=== PATIENT | male | born 1955 | race Caucasian/White ===

== ENCOUNTER 2016-08-18 08:09 | Inpatient (IN) | payer BC, OTHER ==
[~2016-08-18] VITALS: Ht 170.2 cm; Wt 91.2 kg
[2016-08-18] VITALS (20 sets, daily range): BP systolic 109–155; BP diastolic 73–98; PULSE 62–74; RESP 10–26; Ht 170.2 cm; Wt 91.2 kg
[~2016-08-18 08:09] MED LIST: ACET1TAB40 PO; IBUP200C11 PO
[2016-08-18] MEDS ORDERED: GELATIN SIZE 100 SPONGE ONE (11:29)
[2016-08-18] MEDS ORDERED: BUPIVACAINE 0.25%/EPI (SDV) 30 ML INJ ONE (11:29)
[2016-08-18] MEDS ORDERED: SURGIFOAM POWDER 1 GM KIT ONE (11:29)
[2016-08-18] MEDS ORDERED: BUPIVACAINE 0.25% (MPF) 30 ML INJ ONE (11:29)
[2016-08-18] MEDS ORDERED: THROMBIN 5000 UNIT VIAL ONE (11:30)
[2016-08-18] MEDS ORDERED: CA CHLORIDE 10% 10 ML SYRINGE ONE (11:30)
[2016-08-18] MEDS ORDERED: POLYMYXIN/BACITRACIN 1L IRRIG ONE (11:43)
[2016-08-18] MEDS ORDERED: ROCURONIUM 50 MG INJ ONE (12:11)
[2016-08-18] MEDS ORDERED: MEPERIDINE 100 MG INJ ONE (12:11)
[2016-08-18] MEDS ORDERED: SUCCINYLCHOLINE CHLORIDE 100 MG/5 ML SYG IV ONE (12:11)
[2016-08-18] MEDS ORDERED: GLYCOPYRROLATE 0.4 MG INJ ONE ×3 (12:11→13:24)
[2016-08-18] MEDS ORDERED: PROPOFOL 20 ML ONE (12:11)
[2016-08-18] MEDS ORDERED: LIDOCAINE 2% (SDV) 5 ML INJ ONE (12:11)
[2016-08-18] MEDS ORDERED: NEOSTIGMINE 3 MG/3 ML SYRINGE ONE ×2 (12:11→13:24)
[2016-08-18] MEDS ORDERED: FENTAnyl 50 MCG/ML VIAL IV PRN ×2 (12:30)
[2016-08-18] MEDS ORDERED: LABETALOL HCL 20MG INJ IV PRN (12:30)
[2016-08-18] MEDS ORDERED: morphine (1 MG/ML) 10ML SYRINGE IV PRN ×2 (12:30)
[2016-08-18] MEDS ORDERED: MEPERIDINE 25 MG INJ IV PRN (12:30)
[2016-08-18] MEDS ORDERED: ONDANSETRON 4 MG INJ IV PRN (12:30)
[2016-08-18] MEDS ORDERED: HYDROmorphONE (0.2 MG/ML) 10ML SYG IV PRN ×2 (12:30)
[2016-08-18] MEDS ORDERED: hydrALAzine 20 MG INJ IV PRN (12:30)
[2016-08-18] MEDS ORDERED: METOCLOPRAMIDE 10 MG INJ IV PRN (12:30)
[2016-08-18] MEDS ORDERED: DIPHENHYDRAMINE 50 MG INJ IV PRN (12:30)
[2016-08-18] MEDS ORDERED: MIDAZOLAM 1 MG/ML 2 ML INJ IV PRN (12:30)
[2016-08-18] MEDS ORDERED: EPHEDrine SULFATE 50 MG/5 ML SYG IV PRN (12:30)
[2016-08-18] MEDS ORDERED: BUPIVACAINE 0.25%/EPI (SDV) 30 ML INJ INJ ONE (12:48)
[2016-08-18] MEDS ORDERED: THROMBIN 5000 UNIT VIAL TOP ONE (12:48)
[2016-08-18] MEDS ORDERED: POLYMYXIN/BACITRACIN 1L IRRIG IRR ONE (12:48)
[2016-08-18] MEDS ORDERED: ONDANSETRON 4 MG INJ ONE (13:51)
--- NOTE | 2016-08-18 14:10 | HPN ---
Date/Time of Note Date/Time of Note DATE: 08/18/16 TIME: 14:09 Interval H&P Admission Note Pt. seen H&P reviewed: No system changes RAVINDER JUSTIN MD August 18, 2016 14:10
--- NOTE | 2016-08-18 14:11 | RADRPT ---
PROCEDURE: Intraoperative imaging of the lumbar spine with fluoroscopy. CLINICAL INDICATION: Back pain. Intraoperative. TECHNIQUE: 2 images of the lumbar spine were obtained in the operating room with an image intensif ier. No radiologist was in attendance. 7.2 seconds of fluoroscopy time was used. COMPARISON: Intraoperative imaging dated 03/20/2015. FINDINGS: For the purposes of this report, the last apparent true disc level is considered to be L5-S1. Based on this, initial frontal image demonstrates pedicle screws and connecting rods at L5 and S1. The s econd image as a frontal view demonstrating removal of the pedicle screws and connecting rods. IMPRESSION: 1. Intraoperative imaging of the lumbar spine. Removal of pedicle screws and connecting rods. RPTAT: QQ .Carlos Gonsalez MD, Date Time Electronically viewed and signed by .Carlos Gonsalez MD, on 08/18/2016 14:10 .R/
[2016-08-18] MEDS ORDERED: AL HYDROX/MG HYDROX/SIMETH 30 ML CUP PO PRN (14:30)
[2016-08-18] MEDS ORDERED: HYDROCODONE/APAP (10/325) TAB PO PRN ×2 (14:30)
[2016-08-18] MEDS ORDERED: NALOXONE (0.4 MG/ML) INJ IV PRN (14:30)
[2016-08-18] MEDS ORDERED: CYCLOBENZAPRINE 10 MG TAB PO PRN (14:30)
[2016-08-18] MEDS ORDERED: CEPASTAT LOZENGE MT PRN (14:30)
[2016-08-18] MEDS ORDERED: CEFAZOLIN 1 GM/50 ML (PMX) 50 ML IVPB SCH (14:30)
[2016-08-18] MEDS ORDERED: ACETAMINOPHEN 325 MG TAB PO PRN (14:30)
[2016-08-18] MEDS ORDERED: DIPHENHYDRAMINE 25 MG CAP PO PRN (14:30)
[2016-08-18] MEDS ORDERED: HYDROmorphONE 1 MG/ML SYG IV PRN (14:30)
[2016-08-18] MEDS ORDERED: BISACODYL 10 MG SUPP PR PRN (14:30)
[2016-08-18] MEDS: HYDROmorphONE 0.2 MG/ML PCA IV SCH ×2 (14:37→21:34)
[2016-08-18] MEDS: D5W-0.45 NACL + KCL 20 MEQ 1,000 ML IV SCH (16:16)
[2016-08-18] MEDS ORDERED: CARISOPRODOL 350 MG TAB PO PRN (16:30)
--- NOTE | 2016-08-18 17:25 | PN ---
Date/Time of Note Date/Time of Note DATE: 08/18/16 TIME: 17:23 Assessment/Plan VTE Prophylaxis VTE Prophylaxis Intervention: SCD's Lines/Catheters IV Catheter Type (from Nrsg): Saline Lock Subjective 24 Hr Interval Summary Free Text/Dictation post op removal of hardware from l spine awake, doing ok, still some pain, has bander hand vs ok alert, lungs clear, hr ok, abd sl distended post op moves legs well will prob be okj for dc tomorrow per dr pitt Exam/Review of Systems Vital Signs Vitals Vital Signs Date Time Temp Pulse Resp B/P Pulse Ox O2 Delivery O2 Flow Rate FiO2 08/18/16 14:53 70 14 115/76 95 08/18/16 14:43 Room Air 08/18/16 14:14 97.6 Medications Medications Current Medications Potassium Chloride/Dextrose/ Sod Cl (D5-1/2ns + KCl 20 Meq) 1,000 ml @ 100 mls/ hr Q10H IV Last administered on 08/18/16t 16:16; Admin Dose 100 MLS/HR; Start 08/18/16 at 14:11 Acetaminophen/ Hydrocodone Bitart ([place] (10/325)) 1 tab Q4H PRN PO PAIN LEVEL 1-5; Start 08/18/16 at 14:30; Status Future hold Acetaminophen/ Hydrocodone Bitart ([place] (10/325)) 2 tab Q4H PRN PO PAIN LEVEL 6-10; Start 08/18/16 at 14:30; Status Future hold Hydromorphone HCl (Dilaudid) 0.2 mg Q1H PRN IV BREAKTHROUGH PAIN; Start at 14:30 Ondansetron HCl (Zofran Inj) 4 mg Q6H PRN IV NAUSEA AND/OR VOMITING; Start at 14:30 Bisacodyl (Dulcolax Supp) 10 mg DAILY PRN [place] CONSTIPATION; Start 08/18/16 at 14 :30 Docusate Sodium (Colace) 100 mg BID PO ; Start 08/18/16 at 21:00 Pantoprazole (Protonix Iv) 40 mg DAILY@06 IV ; Start 08/19/16 at 06:00 Al Hydrox/Mg Hydrox/Simethicone (Mag-Al Plus) 15 ml Q6H PRN PO CONSTIPATION/ DYSPEPSIA; Start 08/18/16 at 14:30 Acetaminophen (Tylenol Tab) 650 mg Q4H PRN PO DONNELLY OR TEMP GREATER THAN 101.3F; Start 08/18/16 at 14:30 Phenol (Cepastat Lozenge) 1 lozenge PRN PRN [place] SORE THROAT; Start 08/18/16 at 14:30 Diphenhydramine HCl (Benadryl) 25 mg Q6H PRN PO ITCHING; Start 08/18/16 at 14: 30 Naloxone HCl (Narcan) 0.2 mg Q2M PRN IV RR 8 BREATHS/MIN OR LESS; Start at 14:30 Hydromorphone HCl (Dilaudid SECOND CHEF) SECOND CHEF to be started in PACU Q4PCA IV Last administered on 08/18/16t 14:37; Admin Dose 6 MG; Start 08/18/16 at 14:30; Stop 08/19/16 at 10:00 Miscellaneous Information 1. Hold SECOND CHEF at 1,000... SECOND CHEF IV ; Start 08/18/16 at 14: 30; Stop 08/19/16 at 10:00 Cefazolin Sodium (Ancef 1 Gm/50 ml (Pmx)) 50 ml @ 100 mls/hr Q8H IVPB ; Start 08/18/16 at 21:00; Stop 08/19/16 at 13:29 Carisoprodol (Soma) 350 mg TID PRN PO MUSCLE SPASMS; Start 08/18/16 at 16:30 CALLIE DE JESUS MD August 18, 2016 17:25
--- NOTE | 2016-08-18 18:27 | OPR ---
DATE OF OPERATION: 08/18/2016 PREOPERATIVE DIAGNOSES: Retained painful lumbar hardware status post lumbar fusion. POSTOPERATIVE DIAGNOSIS: Retained painful lumbar hardware status post lumbar fusion. PROCEDURE PERFORMED: 1. Removal of deep lumbar hardware. 2. Evaluation of lumbar fusion. 3. Use of C-arm fluoroscopy with interpretation without radiologist present. 4. Intraoperative neuromonitoring (1 hour). PRIMARY SURGEON: Lavelle Pulliam MD. TECHNICAL CONSULTANT: None. FINDINGS: Neuromonitoring at the start of the case revealed left L5 amplitude down 30%, left S1 evelio n 10%. At the end of the case, nerve signals returned to normal. The patient appeared to be fused. ESTIMATED BLOOD LOSS: Less than 30 mL. DRAINS: None. SPECIMENS: Hardware was sent to Pathology. COMPLICATIONS OF PROCEDURES: None. ANESTHESIOLOGIST: Dr. Jara. TYPE OF ANESTHESIA: General. INDICATIONS FOR PROCEDURE: This is a 61-year-old gentleman who had previously undergone a lumbosacr al fusion. The hardware appeared to be causing pain, therefore, I recommended removal of the hardwa re. DESCRIPTION OF PROCEDURE IN DETAIL: The patient was identified in the preoperative holding area, [facility], taken to the operating room, where he was successfully placed under general an esthesia by Dr. Jara. Neuromonitoring leads were placed, sequential compressive devices were applied . Neuromonitoring was utilized during the procedure for 1 hour to include SSEP, MEP and EMG. This was performed by [employer]. Start time was 12:45 p.m., closure time was 1:45 p.m. The patie nt was placed in the operating table in prone position over a Yariel frame. All bony prominences we re well padded. The back was prepped, draped in usual sterile fashion. Using the C-arm fluoroscope , I had localized the incision site. I anesthetized skin and deep muscle with Marcaine and epinephr ine. I then made parasagittal incisions directly over the hardware. One incision on the left, one incision on the right. Incision was taken down to dorsal fascia, which was incised with Bovie caute ry. I identified the hardware. I removed the facet screws bilaterally at L5 and S1. I then evalua adrienne the fusion and the patient appeared to be fused. I removed the rods and then removed the deep L 5 and S1 pedicle screws bilaterally. I then irrigated the wound. I back filled the screw holes wit h Fibergraft . I injected Surgifoam for hemostatic purposes. I irrigated the wound again. I close d the deep fascia with #1 Vicryl stitch. I then closed subcutaneous tissue with 2-0 Vicryl stitch. Dermabond was then placed. I took final x-rays to confirm all hardware had been removed. Nerve s ignals also improved. The patient was then awakened from anesthesia and taken to recovery room in s table condition. Lap, sponge counts were correct x2. There were no apparent complications during t he procedure. The patient will be admitted to the orthopedic stringer for routine postoperative care to include pain c ontrol, neurovascular checks, antibiotics and physical therapy. Dictated By: LAVELLE JOHNSON/PAOLA Conf#: [id number] DID#: [id number]
[2016-08-18] MEDS: CEFAZOLIN 1 GM/50 ML (PMX) 50 ML IVPB SCH (20:09)
[2016-08-18] MEDS: DOCUSATE SODIUM 100 MG CAP PO SCH (20:09)
[2016-08-18] MEDS: ONDANSETRON 4 MG INJ IV PRN (20:09)
[2016-08-19] MEDS: D5W-0.45 NACL + KCL 20 MEQ 1,000 ML IV SCH ×2 (00:11→00:32)
[2016-08-19 04:48] VITALS: BP 142/76; RESP 18
[2016-08-19] MEDS: CEFAZOLIN 1 GM/50 ML (PMX) 50 ML IVPB SCH ×2 (04:49→12:40)
[2016-08-19] MEDS: ONDANSETRON 4 MG INJ IV PRN (04:50)
[2016-08-19] MEDS ORDERED: PANTOPRAZOLE 40 MG INJ IV SCH (06:00)
[2016-08-19 06:01] LABS: CALCIUM 8.7 mg/dl (8.4-10.2); CREATININE 0.84 mg/dl (0.61-1.24); POTASSIUM 4.4 mmol/L (3.5-5.1)
[2016-08-19 06:01] LABS: ADD SCAN DIFF NO
[2016-08-19 06:07] LABS: BASOPHILS % 0.2 % (0.0-2.0); EOSINOPHILS % 0.1 % (0.0-7.0); HEMOGLOBIN 14.6 g/dl (14.0-18.0); MEAN CORPUSCULAR HEMOGLOBIN 28.7 pg (29.0-33.0); MEAN CORPUSCULAR HGB CONC 32.4 g/dl (32.0-37.0); MEAN CORPUSCULAR VOLUME 88.4 fl (82.0-101.0); MEAN PLATELET VOLUME 12.4 fl (7.4-10.4); MONOCYTE # 1.1 10^3/ul (0.3-0.9); MONOCYTES % 8.5 % (0.0-11.0); NEUTROPHIL # 10.8 10^3/ul (1.6-7.5); NEUTROPHILS % 82.9 % (39.0-77.0); PLATELET COUNT 163 10^3/UL (140-415); RED BLOOD COUNT 5.09 10^6/ul (4.70-6.10); RED CELL DISTRIBUTION WIDTH 13.8 % (11.5-14.5)
--- NOTE | 2016-08-19 07:27 | PN ---
Date/Time of Note Date/Time of Note DATE: 08/19/16 TIME: 07:26 Assessment/Plan Lines/Catheters IV Catheter Type (from Nrsg): Saline Lock Assessment/Plan Assessment/Plan s/p HW removal pain controlled nausea - if nausea improves and cleared by PT, will discharge later today Subjective 24 Hr Interval Summary c/o nausea Exam/Review of Systems Vital Signs Vitals Vital Signs Date Time Temp Pulse Resp B/P Pulse Ox O2 Delivery O2 Flow Rate FiO2 08/19/16 04:48 98.5 98 18 142/76 94 08/18/16 17:30 Room Air Intake and Output 08/18/16 08/18/16 08/19/16 15:00 23:00 07:00 Intake Total 800 ml 240 ml 1980 ml Output Total 20 ml 1100 ml Balance 780 ml 240 ml 880 ml Exam Free Text/Dictation nvi Results Result Diagram: 08/19/16 0415 08/19/16 0435 RAVINDER JUSTIN MD August 19, 2016 07:27
[2016-08-19 08:14] VITALS: BP 120/72; RESP 18
[2016-08-19] MEDS: DOCUSATE SODIUM 100 MG CAP PO SCH (09:31)
--- NOTE | 2016-08-19 11:49 | DS ---
DATE OF ADMISSION: 08/18/2016 DATE OF DISCHARGE: 08/19/2016 ADMITTING DIAGNOSIS: Retained painful hardware. DISCHARGE DIAGNOSIS: Retained painful hardware. PROCEDURE: The patient was taken to the operating room on 08/18/2016 underwent hardware removal. HOSPITAL COURSE: The patient was admitted to the orthopedic stringer after undergoing the above procedu re. His postoperative course was uncomplicated. By postoperative day 1, he was deemed stable for d ischarge with followup arranged with the undersigned. Dictated By: RAVINDER JOHNSON/PAOLA Conf#: [id number] DID#: [id number]
[2016-08-19 12:10] VITALS: BP 154/95; PULSE 102; RESP 20
[2016-08-19] MEDS ORDERED: BETHANECHOL 25 MG TAB PO ONE (12:30)
[2016-08-19] MEDS ORDERED: TAMSULOSIN (SR) 0.4 MG CAP PO ONE (14:00)
[2016-08-19 14:20] VITALS: BP 123/72; RESP 20
--- NOTE | 2016-08-19 18:58 | CONS ---
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 Given the totality of this he is stable for discharge and was can be pursued as an outpatient. (2) Fusion of lumbar spine Status: Acute Comment: Successful outcome. Patient has been discharged as per Dr. Pulliam Consultation Date/Type/Reason Admit Date/Time August 18, 2016 at 08:09 Initial Consult Date 08/18/2016 Type of Consultation: Internal medicine Reason for Consultation Postoperative assistance for medical management Referring Provider: RAVINDER PULLIAM MD 24 HR Interval Summary Free Text/Dictation Patient was having some issues at the time of discharge with a postvoid residual. A catheterization after voiding was a liter. Patient has some sensation of discomfort Constitutional: no complaints (Denies fever chills or sweats) Exam/Review of Systems Vital Signs Vitals Vital Signs Date Time Temp Pulse Resp B/P Pulse Ox O2 Delivery O2 Flow Rate FiO2 08/19/16 14:20 99.5 96 20 123/72 94 08/19/16 12:10 Room Air Intake and Output 08/18/16 08/18/16 08/19/16 15:00 23:00 07:00 Intake Total 800 ml 240 ml 1980 ml Output Total 20 ml 1100 ml Balance 780 ml 240 ml 880 ml Exam Constitutional: alert, oriented Respiratory: clear to auscultation, normal air movement Cardiovascular: nl pulses, regular rate and rhythm Results Result Diagram: 08/19/16 0415 08/19/16 0435 Results 24 hrs Laboratory Tests Test 08/19/16 04:15 08/19/16 04:35 White Blood Count 13.0 H Red Blood Count 5.09 Hemoglobin 14.6 Hematocrit 45.0 # Mean Corpuscular Volume 88.4 Mean Corpuscular Hemoglobin 28.7 L Mean Corpuscular Hemoglobin Concent 32.4 Red Cell Distribution Width 13.8 Platelet Count 163 Mean Platelet Volume 12.4 H Neutrophils % 82.9 H Lymphocytes % 8.0 L Monocytes % 8.5 Eosinophils % 0.1 Basophils % 0.2 Nucleated Red Blood Cells % 0.0 Neutrophils # 10.8 H Lymphocytes # 1.0 Monocytes # 1.1 H Eosinophils # 0.0 Basophils # 0.0 Nucleated Red Blood Cells # 0.0 Sodium Level 134 L Potassium Level 4.4 Chloride Level 102 Carbon Dioxide Level 26 Anion Gap 10 Blood Urea Nitrogen 12 Creatinine 0.84 Glucose Level 148 Calcium Level 8.7 MEENA TRAN MD August 19, 2016 18:58
== END 2016-08-19 18:30 | disposition home or self-care (01) | DRG 940 ==
LOC: REC 08:09 → MS1 15:02
PROVIDERS: ADMIT Specialist; ATTEND Specialist
PROC: 0QP004Z Removal of Internal Fixation Device from Lumbar Vertebra, Open Approach (ICD-10-PCS; principal; 2016-08-18 12:00)
DX: T84.84XD Pain due to internal orthopedic prosthetic devices, implants and grafts, subsequent encounter (principal); N13.8 Other obstructive and reflux uropathy; K21.9 Gastro-esophageal reflux disease without esophagitis; H40.1230 Low-tension glaucoma, bilateral, stage unspecified; Z98.1 Arthrodesis status; N40.1 Benign prostatic hyperplasia with lower urinary tract symptoms; Z87.891 Personal history of nicotine dependence; E66.9 Obesity, unspecified; Z68.31 Body mass index [BMI] 31.0-31.9, adult; Y83.8 Other surgical procedures as the cause of abnormal reaction of the patient, or of later complication, without mention of misadventure at the time of the procedure
CPT/HCPCS: 72100; 80048; 85025; 97116; 97161; A4310; C1713; C9113; J0690; J1170; J2175; J2405; J2710; J3480; J7999